=== PATIENT | female | born 1975 | race Caucasian/White ===

== ENCOUNTER 2018-10-23 20:56 | Emergency (ER) | payer OTHER ==
[~2018-10-23] VITALS: Ht 167.6 cm; Wt 59.0 kg
[~2018-10-23 20:56] MED LIST: ALBU0.63 IH; IRON1CAP17 PO
[2018-10-23 21:00] VITALS: BP 139/81
--- NOTE | 2018-10-23 21:00 | NUR ---
ARRIVAL PATIENT PRESENTS WITH COMPLAINTS OF INJURY TO RIGHT HAND. PATIENT REPORTS THAT SHE WAS AT WORK AND A WINDOW SHUT ON HER HAND AT 1700. BRUISING AND SWELLING NOTED TO POSTERIOR HAND. + SENSATION, MOVEMENT, CAP REFILL. MD BRIAN NOTIFIED.
--- NOTE | 2018-10-23 21:14 | ER.PDOC ---
General Chief Complaint: Extremities Stated Complaint: HAND INJURY AT WORK Time seen by MD: 21:12 Source: patient Exam Limitations: no limitations History of Present Illness Initial Comments Right hand injury, smashed it. Occurred: this evening Where: home Severity: moderate Context: crush Location of Injury: (R) hand Modifying Factors: pain on movement Allergies: Coded Allergies: codeine (Verified Allergy, Unknown, VOMITING, 11/16/16) Home Meds Active Scripts Iron Fum & P/Fa/Vit B & C No.9 (INTEGRA PLUS CAPSULE) 1 Each Capsule, 1 EACH PO DAILY for 30 Days, #30 CAPSULE 2 Refills Prov:KARIS LANDIS MD 11/18/16 Albuterol Sulfate (ALBUTEROL SULFATE) 0.63 Mg/3 Ml Vial.neb, 0.63 MG IH TID PRN for WHEEZING, #1 INHALER 3 Refills Prov:KARIS LANDIS MD 11/18/16 Past Medical History Medical History: asthma Surgical History: breast augmentation Social History Smoking: non-smoker Alcohol Use: none Drug Use: none Review of Systems Constitutional: no symptoms reported EENTM: no symptoms reported Respiratory: no symptoms reported Cardiovascular: no symptoms reported Gastrointestinal: no symptoms reported All Other Systems: Reviewed and Negative Physical Exam General Appearance: Alert, No Apparent Distress Hand: tenderness (right with swelling and ecchymosis) Vascular: no vascular compromise Tendons: tendon function nml Forearm/Elbow/Arm: uninjured above wrist Head/ENT: nml inspection, pharynx nml Neck/Back: nml inspection, non-tender Resp/CVS: no resp distress, lungs clear, heart sounds nml, reg. rate & rhythm Abdomen: non-tender, no organomegaly Results/Orders Results/Orders Orders - CLEMENTINE TORRES MD Xr Hand Rt (10/23/18 21:12) Vital Signs Date Time Temp Pulse Resp B/P (MAP) Pulse Ox O2 Delivery O2 Flow Rate FiO2 10/23/18 21:00 98.1 89 18 97 Room Air 10/23/18 21:00 98.1 89 18 139/81 (100) 97 Room Air 10/23/18 21:00 98.1 89 18 09/12/18 16:02 80 EKG/XRAY/CT/US XRAY: hand (No fracture of right hand) Departure Time of Disposition: 21:38 Disposition: 01 HOME, SELF-CARE Impression: Primary Impression: Hand injury Condition: Stable Referrals: PCP,UNKNOWN (PCP) PRIMARY CARE PROVIDER Additional Instructions: Ice Ibuprofen F/U with your PCP in 1 week Duration or Time Spent with Pa: 30 mins Problem Qualifiers Primary Impression: Hand injury Encounter type: initial encounter Laterality: right Qualified Codes: S69.91XA - Unspecified injury of right wrist, hand and finger(s), initial encounter CLEMENTINE TORRES MD Oct 23, 2018 21:14
--- NOTE | 2018-10-23 21:33 | DIREP ---
PROCEDURE:XRAY HAND MIN 3 VW-RT COMPARISON:None. INDICATIONS:Pain/injury FINDINGS: BONES:Normal. JOINTS:Normal. SOFT TISSUES:Normal. OTHER:No additional findings. CONCLUSION:No evidence of fracture Dictated by: Emma Almazan M.D. on 10/23/2018 at 09:31 PM
[2018-10-23 22:00] VITALS: BP 133/77
== END 2018-10-23 22:25 | disposition home or self-care (01) ==
LOC: ER 20:56
DX: S60.221A Contusion of right hand, initial encounter (principal); J45.909 Unspecified asthma, uncomplicated; Z79.899 Other long term (current) drug therapy; Z88.5 Allergy status to narcotic agent; W23.0XXA Caught, crushed, jammed, or pinched between moving objects, initial encounter; Y93.89 Activity, other specified; Y92.098 Other place in other non-institutional residence as the place of occurrence of the external cause; Y99.8 Other external cause status
CPT/HCPCS: 99284; 73130-RT